=== PATIENT | female | born 1965 | race African-American/Black ===

== ENCOUNTER 2016-03-23 12:14 | Emergency (ER) | payer SELFPAY ==
[~2016-03-23] VITALS: Ht 167.6 cm; Wt 97.5 kg
[2016-03-23] MEDS ORDERED: NITROGLYCERIN SUBLINGUAL 0.4 MG BOTTLE OF 25. SL PRN (12:45)
[2016-03-23 12:50] LABS: BASO # 0.1 x10^3/uL (0.0-0.2); BASO % 2 % (0-3); EOS % 7 % (0-3); HEMOGLOBIN 14.2 g/dL (12.0-15.5); LYMPH # 2.2 x10^3/uL (1.0-4.8); LYMPH % 43 % (24-48); MEAN CORPUSCULAR HEMOGLOBIN 30 pg (25-35); MEAN CORPUSCULAR HGB CONC 33 g/dL (31-37); MEAN CORPUSCULAR VOLUME 91 fL (79-100); MONO % 10 % (0-9); NEUT % 39 % (31-73); PLATELET COUNT 326 x10^3/uL (140-400); RED BLOOD COUNT 4.72 x10^6/uL (3.50-5.40); RED CELL DISTRIBUTION WIDTH 14.1 % (11.5-14.5); WHITE BLOOD COUNT 5.1 x10^3/uL (4.0-11.0)
--- NOTE | 2016-03-23 12:55 | EKG ---
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
[2016-03-23 12:59] LABS: CALCIUM 9.2 mg/dL (8.5-10.1); GFR 58.2; POTASSIUM 3.8 mmol/L (3.5-5.1)
[2016-03-23 13:05] LABS: ALBUMIN 3.9 g/dL (3.4-5.0); TOTAL BILIRUBIN 0.4 mg/dL (0.2-1.0); TOTAL PROTEIN 7.8 g/dL (6.4-8.2)
--- NOTE | 2016-03-23 13:19 | ED.ADGEN ---
Past Medical History Past Medical History: Hypertension Past Surgical History: Other Additional Past Surgical Histo: L. shoulder Alcohol Use: Occasionally Drug Use: None Adult General Chief Complaint Chief Complaint: CHEST PAIN HPI HPI Patient is a 50 year old man, with history of hypertension, does not take any medications, who presents emergency Department with a two-week history of intermittent chest pain and pressure. Patient describes the chest pain as a burning pressure located in the center of her chest, states it comes and goes and does not appear to be associated with any inciting or relieving factors. Patient states that he sometimes does radiate into her right arm, had some sweating and shortness of breath associated with it as well. She denies any injuries, any recent travel or surgery, any swelling extremities, any drugs alcohol or cigarettes. She states that she was seen 5 years ago for similar complaints, and was given nitroglycerin, and was discharged home in aspirin, but does not recall any other cardiac evaluation being performed. She does not currently have a doctor, has not seen a doctor since she was evaluated 5 years ago. Noted to have a blood pressure of 203/113 upon arrival to the ED, heart rate of 73, oxygen saturation of 98% on room air. Rested for rate is 18 and unlabored. Patient denies any chest pain at this time. Review of Systems Review of Systems Constitutional: Denies fever or chills. [] Eyes: Denies change in visual acuity. [] HENT: Denies nasal congestion or sore throat. [] Respiratory: Denies cough or shortness of breath. [] Cardiovascular: Chest pain, no edema. Intermittent over the past 2 weeks. Associated with diaphoresis, radiation to the right arm, and in mild shortness of breath. GI: Denies abdominal pain, nausea, vomiting, bloody stools or diarrhea. [] : Denies dysuria. [] Musculoskeletal: Denies back pain or joint pain. [] Integument: Denies rash. [] Neurologic: Denies headache, focal weakness or sensory changes. [] Endocrine: Denies polyuria or polydipsia. [] Lymphatic: Denies swollen glands. [] Psychiatric: Denies depression or anxiety. [] Current Medications Current Medications Current Medications Medications (Trade) Dose Ordered Sig/Yarelis Start Time Stop Time Status Last Admin Dose Admin Acetaminophen (Tylenol) 650 mg 1X ONCE 03/23/16 13:30 03/23/16 13:31 DC 03/23/16 13:09 650 MG Aspirin (Children'S Aspirin) 324 mg 1X ONCE 03/23/16 13:30 03/23/16 13:31 DC 03/23/16 13:09 243 MG Fentanyl Citrate (Fentanyl 2ml Vial) 25 mcg PRN Q15MIN PRN 03/23/16 13:30 03/24/16 13:29 03/23/16 13:07 25 MCG Nitroglycerin (Nitrostat) 0.4 mg PRN Q5MIN PRN 03/23/16 12:45 03/24/16 12:44 03/23/16 13:09 0.4 MG Allergies Allergies Allergies Coded Allergies Type Severity Reaction Last Updated Verified No Known Drug Allergies 03/23/16 No Physical Exam Physical Exam Constitutional: Well developed, well nourished, no acute distress, non-toxic appearance. [] HENT: Normocephalic, atraumatic, bilateral external ears normal, oropharynx moist, no oral exudates, nose normal. [] Eyes: PERRLA, EOMI, conjunctiva normal, no discharge. [] Neck: Normal range of motion, no tenderness, supple, no stridor. [] Cardiovascular:Heart rate regular rhythm, no murmur , S1, S2, no rubs or gallops. [] Lungs & Thorax: Bilateral breath sounds clear to auscultation, no wheezing, rhonchi, rales. Unable to reproduce chest pain with palpation. Normal-appearing external examination. [] Abdomen: Bowel sounds normal, soft, no tenderness, no rebound, no rigidity, no guarding, no masses, no pulsatile masses. [] Skin: Warm, dry, no erythema, no rash. [] Back: No tenderness, no CVA tenderness. [] Extremities: No tenderness, no cyanosis, no clubbing, ROM intact, no edema. Negative Homans sign. [] Neurologic: Alert and oriented X 3, normal motor function, normal sensory function, no focal deficits noted. [] Psychologic: Affect normal, judgement normal, mood normal. [] Current Patient Data Vital Signs Vital Signs Date Time Temp Pulse Resp B/P Pulse Ox O2 Delivery O2 Flow Rate FiO2 03/23/16 14:48 62 156/74 98 Room Air 03/23/16 13:26 18 03/23/16 12:41 98.1 98.1 Lab Values Laboratory Tests Test 03/23/16 12:38 03/23/16 13:40 03/23/16 15:43 White Blood Count 5.1x10^3/uL (4.0-11.0) Red Blood Count 4.72x10^6/uL (3.50-5.40) Hemoglobin 14.2g/dL (12.0-15.5) Hematocrit 43.0% (36.0-47.0) Mean Corpuscular Volume 91fL (79-100) Mean Corpuscular Hemoglobin 30pg (25-35) Mean Corpuscular Hemoglobin Concent 33g/dL (31-37) Red Cell Distribution Width 14.1% (11.5-14.5) Platelet Count 326x10^3/uL (140-400) Neutrophils (%) (Auto) 39% (31-73) Lymphocytes (%) (Auto) 43% (24-48) Monocytes (%) (Auto) 10% (0-9) H Eosinophils (%) (Auto) 7% (0-3) H Basophils (%) (Auto) 2% (0-3) Neutrophils # (Auto) 2.0x10^3uL (1.8-7.7) Lymphocytes # (Auto) 2.2x10^3/uL (1.0-4.8) Monocytes # (Auto) 0.5x10^3/uL (0.0-1.1) Eosinophils # (Auto) 0.4x10^3/uL (0.0-0.7) Basophils # (Auto) 0.1x10^3/uL (0.0-0.2) PTT 28SEC (24-38) Sodium Level 140mmol/L (136-145) Potassium Level 3.8mmol/L (3.5-5.1) Chloride Level 105mmol/L (98-107) Carbon Dioxide Level 28mmol/L (21-32) Anion Gap 7 (6-14) Blood Urea Nitrogen 9mg/dL (7-20) Creatinine 1.0mg/dL (0.6-1.0) Estimated GFR (Cockcroft-Gault) 58.2 BUN/Creatinine Ratio 9 (6-20) Glucose Level 91mg/dL (70-99) Calcium Level 9.2mg/dL (8.5-10.1) Total Bilirubin 0.4mg/dL (0.2-1.0) Aspartate Amino Transferase (AST) 24U/L (15-37) Alanine Aminotransferase (ALT) 28U/L (14-59) Alkaline Phosphatase 83U/L (46-116) Troponin I Quantitative < 0.017ng/mL (0.000-0.055) DX-Jjz-M-Type Natriuretic Peptide 110pg/mL (0-124) Total Protein 7.8g/dL (6.4-8.2) Albumin 3.9g/dL (3.4-5.0) Albumin/Globulin Ratio 1.0 (1.0-1.7) Lipase 115U/L (73-393) Urine Collection Type Unknown Urine Color Yellow Urine Clarity Clear Urine pH 6.0 Urine Specific [place] <=1.005 Urine Protein Negativemg/dL (NEG-TRACE) Urine Glucose (UA) Negativemg/dL (NEG) Urine Ketones (Stick) Negativemg/dL (NEG) Urine Blood Negative (NEG) Urine Nitrite Negative (NEG) Urine Bilirubin Negative (NEG) Urine Urobilinogen Dipstick 0.2mg/dL (0.2 mg/dL) Urine Leukocyte Esterase Negative (NEG) Urine RBC Occ/HPF (0-2) Urine WBC Occ/HPF (0-4) Urine Squamous Epithelial Cells Few/LPF Urine Bacteria 0/HPF (0-FEW) Urine Opiates Screen Neg (NEG) Urine Methadone Screen Neg (NEG) Urine Barbiturates Neg (NEG) Urine Phencyclidine Screen Neg (NEG) Urine Amphetamine/Methamphetamine Neg (NEG) Urine Benzodiazepines Screen Neg (NEG) Urine Cocaine Screen Neg (NEG) Urine Cannabinoids Screen Neg (NEG) Urine Ethyl Alcohol Neg (NEG) POC Troponin I 0.00ng/ml (<0.08) Laboratory Tests 03/23/16 12:38 Laboratory Tests 03/23/16 12:38 EKG EKG EC: Sinus rhythm, heart rate 63 beats minute, left axis deviation, QTC of 449, PA 172, QRS of 82, contour abnormalities noted in the inferior leads, T- wave inversions in lead 3, no ST elevations or depressions, abnormal ECG, does not meet STEMI criteria. As interpreted by me. Radiology/Procedures Radiology/Procedures [] [facility] [address] [place] [address] IMAGING REPORT Signed PATIENT: MACIE ARREDONDO ACCOUNT: [id number] : 1965 LOCATION: ER AGE: 50 SEX: F EXAM STATUS: PRE ER ORD. PHYSICIAN: JOSH MALLOY DO REASON: CP PROCEDURE: PORTABLE CHEST 1V Portable AP chest. History: Chest pain AP view was taken of the chest. Lungs are clear. Heart is normal in size. There is no pneumothorax or pleural effusion. Impression: 1. No acute chest disease. DICTATED and SIGNED BY: PAVITHRA IGLESIAS MD DATE: 03/23/161335 CC: JOSH MALLOY DO ~ Course & Med Decision Making Course & Med Decision Making Pertinent Labs and Imaging studies reviewed. (See chart for details) Patient's blood pressure improved on repeat without intervention, patient's laboratory studies and imaging did not reveal any acutely concerning findings. I did discuss with patient that with her complaints, and persistence of symptoms , that this could be cardiac in nature, and the only way to fully evaluate her symptoms would be admission to the hospital. Patient did decline admission to the hospital, stating that she has an appointment on Friday to follow-up with a primary care provider at [facility] and will return to the ED if any symptoms return if any concerning symptoms develop. Repeat troponin was performed in the ED, second troponin was 0.00, and as stated patient's initial studies and evaluation were unremarkable aside from T waves inversions noted in lead 3. Patient is aware of these ECG abnormalities. Lengthy discussion at bedside as stated, patient stated that she began prefers to return if she has any recurrent symptoms, and will follow up as stated. Patient discharged home in stable condition with prescription for hydrocodone thiazide 12.5 mg to be taken daily, to follow-up on Friday with primary care provider, and to return to the ED for concerning symptoms as discussed. Dragon Disclaimer Dragon Disclaimer This electronic medical record was generated, in whole or in part, using a voice recognition dictation system. Departure Impression: Primary Impression: Chest pain Disposition: HOME, SELF-CARE Condition: STABLE Problem Qualifiers Primary Impression: Chest pain Chest pain type: unspecified Qualified Code: R07.9 - Chest pain, unspecified JOSH MALLOY DO Mar 23, 2016 13:19
[2016-03-23] MEDS ORDERED: FENTANYL PF 100 MCG/2 ML VIAL. IV PRN (13:30)
[2016-03-23] MEDS ORDERED: ACETAMINOPHEN 325 MG TABLET. PO ONE (13:30)
[2016-03-23] MEDS ORDERED: ASPIRIN 81 MG TAB.CHEW PO ONE (13:30)
--- NOTE | 2016-03-23 13:39 | RAD ---
Portable AP chest. History: Chest pain AP view was taken of the chest. Lungs are clear. Heart is normal in size. There is no pneumothorax or pleural effusion. Impression: 1. No acute chest disease.
[2016-03-23 13:58] LABS: BILIRUBIN,URINE NEGATIVE (NEG); GLUCOSE,URINE NEGATIVE (NEG); NITRITE,URINE NEGATIVE (NEG); PROTEIN,URINE NEGATIVE (NEG-TRACE); UROBILINOGEN,URINE 0.2 mg/dL (0.2 mg/dL)
[2016-03-23 14:07] LABS: RBC,URINE OCC /HPF (0-2); WBC,URINE OCC /HPF (0-4)
[2016-03-23 14:08] LABS: BACTERIA,URINE 0 /HPF (0-FEW); SQUAMOUS EPITHELIAL CELL,UR FEW /LPF
[2016-03-23 14:11] LABS: BARBITURATES NEG (NEG); BENZODIAZEPINES NEG (NEG); CANNABINOIDS NEG (NEG); COCAINE NEG (NEG); ETHANOL, URINE NEG (NEG); METHADONE NEG (NEG); OPIATES NEG (NEG); PHENCYCLIDINE NEG (NEG)
[2016-03-23] MEDS ORDERED: HYDR12.53 PO (16:05)
[2016-03-23 16:39] VITALS: BP 172/79
== END 2016-03-23 16:47 | disposition home or self-care (01) ==
LOC: ER 12:14
DX: R07.9 Chest pain, unspecified (principal); I10 Essential (primary) hypertension
CPT/HCPCS: 36415; 71010; 80053; 81001; 83690; 83880; 84484; 85027; 85730; 93005; 96374; 99285; G0481; J3010